=== PATIENT | male | born 1955 | race Caucasian/White ===

== ENCOUNTER → 2017-06-13 | Outpatient (CLI) | payer OTHER ==
[~2017-06-13] MED LIST: CRESTOR10 MG PO; FLOMAX0.4 MG PO; PROVIGIL 200 M200 M1 PO
--- NOTE | ~2017-06-13 | EKG ---
[address] [address] ELECTROCARDIOGRAM REPORT Name: JALIL CRISOSTOMO [facility] [id number]: 06/13/17 Attend Phys: Jonny Solano MD Discharge: Date of : 57 Report #: [id number] THIS REPORT FOR: //name// [facility] Test Date: 2017-06-13 Test Time: 07:58:01 Pat Name: JALIL CRISOSTOMO Department: Room: Gender: Computer Systems Architect: ALEC : 1955 Requested By: Jonny Solano Order Number: [id number] MD: Pierce Guzman Measurements Intervals [place] Rate: 64 P: 72 WA: 172 QRS: 70 QRSD: 100 T: 49 QT: 428 QTc: 442 Interpretive Statements Sinus rhythm No significant abnormality No previous ECG available for comparison Electronically Signed On 06-13-2017 9:11:03 CDT by Pierce Guzman [email or web address] <ELECTRONICALLY SIGNED> By: Pierce Guzman MD, [facility] 06/13/17 0911 [id number] Pierce Guzman MD, FACC /EPI
== END ==
LOC: LITH 07:03
DX: N20.0 Calculus of kidney (principal)
CPT/HCPCS: 50010